=== PATIENT | male | born 1975 | race Caucasian/White ===

== ENCOUNTER 2021-12-11 18:12 | Emergency (ER) | payer MEDICAID ==
[2021-12-11 21:32] LABS: Basophils # (Auto) 0.1 K/mm3 (0.0-0.1); Basophils % (Auto) 0.5 % (0.0-1.8); Eosinophils # (Auto) 0.3 K/mm3 (0.0-0.4); Eosinophils % (Auto) 2.8 % (0.0-4.3); Hematocrit 45.9 % (35.5-45.6); Hemoglobin 14.5 gm/dl (11.8-15.2); Lymphocytes # (Auto) 2.2 K/mm3 (1.2-5.4); Mean Corpuscular HGB Conc 32 % (32-34); Mean Corpuscular Volume 82 fl (84-94); Monocytes # (Auto) 0.6 K/mm3 (0.0-0.8); Monocytes % (Auto) 6.3 % (0.0-7.3); Platelet Count 323 K/mm3 (140-440); Red Blood Count 5.57 M/mm3 (3.65-5.03); Red Cell Distribution Width 15.2 % (13.2-15.2)
[2021-12-11 21:54] LABS: BUN/Creatinine Ratio 12; Blood Urea Nitrogen 14 mg/dL (9-20); Calcium 9.3 mg/dL (8.4-10.2); Hemolysis Index 8
[2021-12-11 21:57] LABS: Amphetamine Screen,Urine Negative; Benzodiazepines Screen,Urine Negative; Cannabinoid Screen,Urine Negative; Cocaine Screen,Urine Negative; Methadone Screen,Urine Negative; Opiate Screen,Urine Negative
[2021-12-11 22:03] LABS: Bilirubin,Urine NEG (Negative); Blood,Urine NEG (Negative); Color,Urine Yellow (Yellow); Mucus,Urine 2+ /HPF; Urobilinogen,Urine < 2.0 mg/dL (<2.0)
--- NOTE | 2021-12-11 23:13 | Emergency Department Report ---
ED Psych HPI - General Chief Complaint: Psych Stated Complaint: PSYCHOSIS Time Seen by Provider: 12/11/21 20:13 Source: EMS Mode of arrival: Stretcher Limitations: No Limitations - History of Present Illness Initial Comments: Pt reports auditory and visual hallucinations, pt also beleives that he is being followed. He states that it all started a year ago when he was at the dentist and they put something in his ear. Complaint: other -: Gradual, month(s) Associated Psychiatric Symptoms: auditory hallucinations, delusions Quality: intermittent Improves With: none Worsens With: none Associated Symptoms: denies other symptoms Treatments Prior to Arrival: none - Related Data Allergies Allergy/AdvReac Type Severity Reaction Status Date / Time No Known Allergies Allergy Verified 12/11/21 18:18 ED Review of Systems ROS: Stated complaint: PSYCHOSIS Other details as noted in HPI Constitutional: denies: chills, fever Eyes: denies: eye pain, eye discharge, vision change ENT: denies: ear pain, throat pain Respiratory: denies: cough, shortness of breath, wheezing Cardiovascular: denies: chest pain, palpitations Endocrine: no symptoms reported Gastrointestinal: denies: abdominal pain, nausea, diarrhea Genitourinary: denies: urgency, dysuria Musculoskeletal: denies: back pain, joint swelling, arthralgia Skin: denies: rash, lesions Neurological: denies: headache, weakness, paresthesias Psychiatric: denies: anxiety, depression Hematological/Lymphatic: denies: easy bleeding, easy bruising ED Past Medical Hx - Past Medical History Hx Hypertension: Yes Hx Psychiatric Treatment: Yes (schizophrenia) - Social History Smoking Status: Current Every Day Smoker Substance Use Type: None ED Physical Exam - General Limitations: No Limitations General appearance: alert, in no apparent distress - Head Head exam: Present: atraumatic, normocephalic - Eye Eye exam: Present: normal appearance - ENT ENT exam: Present: mucous membranes moist - Neck Neck exam: Present: normal inspection - Respiratory Respiratory exam: Present: normal lung sounds bilaterally. Absent: respiratory distress - Cardiovascular Cardiovascular Exam: Present: regular rate, normal rhythm. Absent: systolic murmur, diastolic murmur, rubs, gallop - GI/Abdominal GI/Abdominal exam: Present: soft, normal bowel sounds - Rectal Rectal exam: Present: deferred - Extremities Exam Extremities exam: Present: normal inspection - Back Exam Back exam: Present: normal inspection - Neurological Exam Neurological exam: Present: alert, oriented X3 - Psychiatric Psychiatric exam: Present: agitated - Skin Skin exam: Present: warm, dry, intact, normal color. Absent: rash ED Course Vital Signs 12/11/21 12/11/21 12/11/21 18:17 19:09 19:56 Temperature 98.4 F 98.0 F Pulse Rate 114 H 102 H Respiratory 16 18 Rate Blood Pressure 199/98 138/94 [Right] O2 Sat by Pulse 98 98 96 Oximetry 12/12/21 12/12/21 12/12/21 02:21 04:09 11:00 Temperature 98.4 F 98.4 F Pulse Rate 79 88 Respiratory 18 16 16 Rate Blood Pressure 127/74 138/97 [Right] O2 Sat by Pulse 94 97 96 Oximetry 12/12/21 11:05 Temperature Pulse Rate Respiratory Rate Blood Pressure [Right] O2 Sat by Pulse 96 Oximetry ED Medical Decision Making - Lab Data Result diagrams: 12/11/21 20:50 12/11/21 20:50 Critical care attestation.: If time is entered above; I have spent that time in minutes in the direct care of this critically ill patient, excluding procedure time. ED Disposition Clinical Impression: Paranoia, Psychosis Disposition: [address] [place] [address] Is pt being admited?: No Does the pt Need Aspirin: No Condition: Stable Referrals: HALLE WEBBER MD [Primary Care Provider] - 3-5 Days
--- NOTE | 2021-12-12 10:00 | Consultation ---
History of Present Illness - Reason for Consult Consult date: 12/12/21 Reason for consult: Mental health evaluation - History of Present Psychiatric Illness The patient is a 46 year male with history of PTSD who presents to the ED with paranoia. In my interview with the patient, he is calm alert and oriented x2 and paranoid. The patient states he was on Zyprexa and used to go to [facility]. When asking why he is here, he states " because someone stole from me, people interfering with my phone and trying to take my checks, they are manipulating everything." The patient denies any current suicidal/homicidal ideation but admits to having auditory hallucinations " voices saying my name. " PAST PSYCHIATRIC HISTORY Diagnoses: PTSD Suicide attempts or Self-harm behavior: Denies Prior psychiatric hospitalizations: Denies Substance Abuse history: Denies Previous psychiatric medications tried: Zyprexa Outpatient treatment: [facility] PAST MEDICAL HISTORY: None reported Family Psychiatric History: None reported or documented SOCIAL HISTORY Marital Status: Single Living Arrangements: alone Employment Status: employed Access to guns/weapons: Denies Education: GED History of Abuse: none reported Legal History: none REVIEW OF SYSTEMS Constitutional: Negative for weight loss ENT: Negative for stridor Respiratory: Negative for cough or hemoptysis All other systems reviewed and are negative MENTAL STATUS EXAMINATION General Appearance and Behavior: Age appropriate, not wearing appropriate clothes, fair eye contact, Cooperation: Engaged Psychomotor Behavior: Psychomotor normal Mood: Calm Affect and affective range: Restricted Thought Process: Circumstantial Thought Content: Hallucinations/ paranoid Speech: Normal tone and pace Suicidal Ideation:Denies Homicidal Ideation: Denies Hallucinations: Auditory Delusions:Paranoid Insight and Judgment: poor insight and judgment Memory: Normal Attention: divided attention impaired Orientation: Alert, oriented Assessment: Mood disorder, Unspecified 1013 Treatment Plan Continue home medications. Start Zyprexa 10mg po BID Start Trazodone 50mg po QHS Risks, benefits and alternatives of medications discussed with the patient, questions answered and consent obtained from patient. PSYCHOTHERAPY: Supportive psychotherapy provided MEDICAL: Per primary team DELIRIUM PRECAUTIONS: Please re-orient patient frequently, keep lights on during the day, and minimize benzodiazepines and opiates as these medications could worsen patient's confusion. 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 Will follow. Thanks Thank you for the consult. Case discussed with Dr. Avila who agrees with current disposition Medications and Allergies Medications and Allergies Allergies Allergy/AdvReac Type Severity Reaction Status Date / Time No Known Allergies Allergy Verified 12/11/21 18:18 Mental Status Exam - Vital signs Last Vital Signs Temp 98.4 F 12/12/21 02:21 Pulse 79 12/12/21 02:21 Resp 16 12/12/21 04:09 BP 127/74 12/12/21 02:21 Pulse Ox 97 12/12/21 04:09 Results Result Diagrams: 12/11/21 20:50 12/11/21 20:50 Abnormal lab results 12/11/21 12/11/21 12/11/21 Range/Units 20:50 20:50 20:50 RBC 5.57 H (3.65-5.03) M/mm3 Hct 45.9 H (35.5-45.6) % MCV 82 L (84-94) fl MCH 26 L (28-32) pg Glucose 138 H (75-100) mg/dL Salicylates < 0.3 L (2.8-20.0) mg/dL Acetaminophen (10.0-30.0) ug/mL 12/11/21 Range/Units 20:50 RBC (3.65-5.03) M/mm3 Hct (35.5-45.6) % MCV (84-94) fl MCH (28-32) pg Glucose (75-100) mg/dL Salicylates (2.8-20.0) mg/dL Acetaminophen 5.0 L (10.0-30.0) ug/mL All other labs normal.
[2021-12-12 11:02] VITALS: BP 138/97
--- NOTE | 2021-12-12 11:13 | Emergency Department Report ---
Blank Doc - Documentation Documentation: Patient has been medically cleared. Psychiatric services has seen the patient. We are awaiting psychiatric placement.
[2021-12-12] MEDS ORDERED: traZODone 50 MG TAB PO SCH (22:00)
== END 2021-12-12 18:38 ==
LOC: ED 18:12
DX: F22 Delusional disorders (principal); F29 Unspecified psychosis not due to a substance or known physiological condition; F17.200 Nicotine dependence, unspecified, uncomplicated; I10 Essential (primary) hypertension; Z20.822 Contact with and (suspected) exposure to COVID-19
CPT/HCPCS: 36415; 80048; 80307; 81001; 85025; 99285; U0003; 80320; G0480

== ENCOUNTER 2022-06-06 12:34 | Emergency (ER) | payer MEDICAID ==
[2022-06-06 12:40] VITALS: BP 128/100
--- NOTE | 2022-06-06 15:48 | Emergency Department Report ---
ED General Adult HPI - General Chief complaint: Medical Clearance Stated complaint: PSYCH/HTN Time Seen by Provider: 06/06/22 14:26 Source: patient, EMS Mode of arrival: Stretcher Limitations: No Limitations - History of Present Illness Initial comments: 46-year-old male with history hypertension and schizophrenia Presents to the ER with multiple complaints. First patient complains of his right ears feeling full, filled up with fluid which is going on for the past 2 years, recently saw his PCP who placed him on some Augmentin antibiotics which she is still taking. But he states he still hearing voices and needs to get it checked out. Describes the voices as being loud, causing him to have migraines. Patient is noted to respond to stimuli during interview, he was paranoid, also requests to have his medical check up, states he has not had his blood checked in a while and needs a medical checkup to make sure everything is okay with him. He denies SI or HI, he denies chest pain, shortness of breath, dizziness, no vision changes, no fever chills no cough cold congestion, he denies drug use -: year(s) Associated Symptoms: headaches. denies: confusion, chest pain, cough, diaphoresis, fever/chills, loss of appetite, malaise, nausea/vomiting, rash, seizure, shortness of breath, syncope, weakness Treatments Prior to Arrival: other (Antibiotic) - Related Data Allergies Allergy/AdvReac Type Severity Reaction Status Date / Time No Known Allergies Allergy Verified 06/06/22 12:39 ED Review of Systems ROS: Stated complaint: PSYCH/HTN Other details as noted in HPI Constitutional: denies: chills, fever Eyes: denies: eye pain ENT: ear pain. denies: throat pain, dental pain Respiratory: denies: cough, orthopnea Cardiovascular: denies: chest pain, palpitations Endocrine: denies: intolerance to cold, intolerance to heat Gastrointestinal: denies: abdominal pain, nausea, vomiting Genitourinary: denies: urgency Musculoskeletal: denies: back pain, joint swelling Skin: denies: rash Neurological: headache. denies: weakness, numbness, paresthesias, confusion Psychiatric: auditory hallucinations, visual hallucinations. denies: homicidal thoughts, suicidal thoughts ED Past Medical Hx - Past Medical History Hx Hypertension: Yes Hx Psychiatric Treatment: Yes (schizophrenia) - Social History Smoking Status: Current Every Day Smoker Substance Use Type: None ED Physical Exam - General Limitations: No Limitations General appearance: alert, obese - Eye Eye exam: Present: normal appearance - ENT ENT exam: Present: normal exam, normal orophraynx - Neck Neck exam: Present: normal inspection - Respiratory Respiratory exam: Present: normal lung sounds bilaterally - Cardiovascular Cardiovascular Exam: Present: regular rate, normal rhythm - GI/Abdominal GI/Abdominal exam: Present: soft. Absent: distended, tenderness - Extremities Exam Extremities exam: Present: normal inspection, full ROM - Back Exam Back exam: Present: normal inspection, full ROM - Neurological Exam Neurological exam: Present: alert, oriented X3, normal gait - Psychiatric Psychiatric exam: Present: agitated, other (Responding to stimuli,). Absent: homicidal ideation - Skin Skin exam: Present: warm, dry, intact, normal color ED Course Vital Signs 06/06/22 12:38 Temperature 98.1 F Pulse Rate 111 H Respiratory 18 Rate Blood Pressure 128/100 [Left] O2 Sat by Pulse 99 Oximetry - Reevaluation(s) Reevaluation #1: 06/06/22 1600-was notified by nursing staff that patient declined a telemetry psych visit, and states he needs to speak with someone physically. Is also eating lunch tray which has been provided for him but still request some office 1700-walking around requesting more food " also request to go to the psychiatric area so he can be monitored over the night". No indication for pain testing at this time, discussed with ED attending Dr. Faith ED Medical Decision Making - Medical Decision Making 46-year-old male with history hypertension and schizophrenia Presents to the ER with multiple complaints. First patient complains of his right ears feeling full, filled up with fluid which is going on for the past 2 years, recently saw his PCP who placed him on some Augmentin antibiotics which she is still taking. But he states he still hearing voices and needs to get it checked out. Describes the voices as being loud, causing him to have migraines. Patient is noted to respond to stimuli during interview. Also requests to have his medical check up, states he has not had his blood checked in a while and needs a medical checkup to make sure everything is okay with him. He denies SI or HI, he denies chest pain, shortness of breath, dizziness, no vision changes, no fever chills no cough cold congestion, Based on physical exam, consulted behavioral health to evaluate patient, however patient declined to speak with anyone of them via the telemetry device, states it has to be physical. Plan was to have patient wait till tomorrow morning until there is an bander but he continues to request for food for dinner blanket he wants to go outside and smoke and got upset because he could not get any of those done and requested to go sit in the behavioral health clinic, patient and he states he was leaving because 1. did not get any food 2.he was moved o to the psychiatric hold area 3. cannot go outside and smoke. Picked up his belongings said he was living otherwise he has been discharged from the emergency department. I previously provided patient with outpatient resources he does have a psychiatrist who prescribes olanzapine which are recommending follow-up with them. Audio voice dictation device used, hence the chart might contain some dictation errors, mispronunciations, wrong spelling and wrong verbiage. Critical care attestation.: If time is entered above; I have spent that time in minutes in the direct care of this critically ill patient, excluding procedure time. ED Disposition Clinical Impression: Paranoia, Otalgia, History of schizophrenia Disposition: LEFT AWOL/ELOPED Is pt being admited?: No Does the pt Need Aspirin: No Condition: Stable Referrals: HALLE WEBBER MD [Primary Care Provider] - 3-5 Days
[2022-06-06 17:38] LABS: Mucus,Urine 2+ /HPF
[2022-06-06 17:39] LABS: Color,Urine Straw (Yellow)
[2022-06-06 17:46] LABS: Amphetamine Screen,Urine PRESUMPTIVE NEGATIVE; Benzodiazepines Screen,Urine PRESUMPTIVE NEGATIVE; Cannabinoid Screen,Urine PRESUMPTIVE NEGATIVE; Cocaine Screen,Urine PRESUMPTIVE NEGATIVE; Methadone Screen,Urine PRESUMPTIVE NEGATIVE; Opiate Screen,Urine PRESUMPTIVE NEGATIVE
== END 2022-06-06 19:55 | disposition left against medical advice (07) ==
LOC: ED 12:34
DX: F22 Delusional disorders (principal); H92.09 Otalgia, unspecified ear; F20.9 Schizophrenia, unspecified; F17.200 Nicotine dependence, unspecified, uncomplicated; I10 Essential (primary) hypertension; Z79.899 Other long term (current) drug therapy
CPT/HCPCS: 80307; 81001; 99283